=== PATIENT | female | born 1990 ===

== ENCOUNTER 2017-09-22 00:11 | Inpatient (IN) | payer OTHER ==
[~2017-09-22] VITALS: Ht 147.3 cm; Wt 62.7 kg
[2017-09-22] VITALS (62 sets, daily range): BP systolic 86–141; BP diastolic 48–89; PULSE 70–121; TEMP 97.5–98.5
[2017-09-22] MEDS ORDERED: CONCEPT DHA1 CAP PO (00:58)
[2017-09-22 02:30] LABS: BASO % 0.3 % (0.0-2.0); EOS # 0.1 (0.0-0.7); EOS % 1.9 % (0-4.0); GRAN # 4.5 (1.4-6.5); GRAN % 61.4 % (42.2-75.2); HEMOGLOBIN 11.2 g/dl (12.5-16.0); LYMPH % 26.7 % (20.0-51.0); MEAN CELL VOLUME 91 fl (80.0-100.0); MEAN CORPUSCULAR HEMOGLOBIN 31 pg (27.0-31.0); MEAN CORPUSCULAR HGB CONC 34 g/dl (33.0-37.0); MEAN PLATELET VOLUME 12.3 fl (7.4-10.4); MONO # 0.7 (0.1-0.6); MONO % 9.4 % (1.7-9.3); PLATELET COUNT 204 K/mm3 (130-400); RED BLOOD COUNT 3.63 M/mm3 (4.10-5.30); REDCELL DISTRIBUTION WIDTH-CV 13.2 % (11.5-14.5)
[2017-09-22 02:32] LABS: HEMATOCRIT 32.9 % (37.0-47.0)
[2017-09-23 03:20] VITALS: BP 99/50; PULSE 71
[2017-09-23 08:55] VITALS: BP 87/50; PULSE 74; TEMP 98.1
[2017-09-23 16:15] VITALS: BP 97/49; PULSE 82; TEMP 97.5
[2017-09-23 19:00] VITALS: BP 93/50; PULSE 70; TEMP 97.8
[2017-09-24 06:26] VITALS: BP 102/63; PULSE 73; TEMP 97.5
[2017-09-24] MEDS ORDERED: PERCOCET 325 MG1 TA2 PO (10:10)
[2017-09-24] MEDS ORDERED: IBU600 MG PO (10:10)
[2017-09-24 16:21] VITALS: BP 98/58; PULSE 62; TEMP 97.5
== END 2017-09-24 22:45 | disposition home or self-care (01) | DRG 775 ==
LOC: LDRO 00:11 → LDR 00:39 → LDRO 01:35 → LDR 01:38 → OB 17:30
PROVIDERS: Student in an Organized Health Care Education/Training Program
PROC: 10E0XZZ Delivery of Products of Conception, External Approach (ICD-10-PCS; principal; 2017-09-22)
PROC: 0KQM0ZZ Repair Perineum Muscle, Open Approach (ICD-10-PCS; 2017-09-22)
DX: O60.14X0 Preterm labor third trimester with preterm delivery third trimester, not applicable or unspecified (principal); Z3A.34 34 weeks gestation of pregnancy; Z37.0 Single live birth; O70.1 Second degree perineal laceration during delivery
CPT/HCPCS: J0595; J0702; J2540; J2590; J2795; J3105; J7120

== ENCOUNTER 2020-06-18 13:09 | Emergency (ER) | payer OTHER ==
[~2020-06-18] VITALS: Ht 147.3 cm; Wt 63.6 kg
[~2020-06-18 13:09] MED LIST: CONCEPT DHA1 CAP PO; IBU600 MG PO; PERCOCET 325 MG1 TA2 PO
[2020-06-18 13:10] VITALS: TEMP 97.6
[2020-06-18 15:10] LABS: BASO % 0.4 % (0.0-2.0); EOS # 0.2 (0.0-0.7); EOS % 1.5 % (0-4.0); GRAN # 8.7 (1.4-6.5); GRAN % 78.3 % (42.2-75.2); HEMOGLOBIN 12.1 g/dl (12.5-16.0); LYMPH # 1.4 (1.2-3.4); LYMPH % 12.9 % (20.0-51.0); MEAN CELL VOLUME 89 fl (80.0-100.0); MEAN CORPUSCULAR HEMOGLOBIN 29 pg (27.0-31.0); MEAN CORPUSCULAR HGB CONC 33 g/dl (33.0-37.0); MEAN PLATELET VOLUME 10.5 fl (7.4-10.4); MONO # 0.7 (0.1-0.6); MONO % 6.5 % (1.7-9.3); PLATELET COUNT 310 K/mm3 (130-400); RED BLOOD COUNT 4.15 M/mm3 (4.10-5.30); REDCELL DISTRIBUTION WIDTH-CV 13.4 % (11.5-14.5)
[2020-06-18 15:11] LABS: HEMATOCRIT 36.8 % (37.0-47.0)
[2020-06-18 15:19] LABS: CREATININE, serum 0.71 (0.52-1.25); POTASSIUM 3.7 mmol/L (3.4-5.0)
[2020-06-18 15:35] VITALS: BP 116/66; PULSE 98
== END 2020-06-18 15:50 | disposition home or self-care (01) ==
LOC: COL.ER 13:09
PROVIDERS: Emergency Medicine
DX: S09.90XA Unspecified injury of head, initial encounter (principal); M79.604 Pain in right leg; M79.605 Pain in left leg; V49.9XXA Car occupant (driver) (passenger) injured in unspecified traffic accident, initial encounter